=== PATIENT | male | born 1950 | race Caucasian/White ===

== ENCOUNTER → 2020-09-20 | Day surgery (SDC) | payer MEDICARE ==
[~2020-09-20] MED LIST: 24HR ALLERGY REL5 MG PO; ALTOPREV40 MG PO; DITROPAN XL 5 MG5 MG PO; ESCITALOPRAM OX20 MG PO; GLUCOPHAGE500 MG PO; MONTELUKAST SOD10 MG PO; MUCUS D ER 6001 EACH PO; NEXIUM40 MG PO; NORVASC5 MG PO; RAMIPRIL10 MG PO; TYLENOL 8 HOUR650 MG PO
== END | disposition home or self-care (01) ==
LOC: OR 11:38
DX: K63.5 Polyp of colon (principal); K64.1 Second degree hemorrhoids; K58.9 Irritable bowel syndrome, unspecified; I10 Essential (primary) hypertension; E78.5 Hyperlipidemia, unspecified; E11.9 Type 2 diabetes mellitus without complications; J45.909 Unspecified asthma, uncomplicated; Z79.899 Other long term (current) drug therapy; Z90.49 Acquired absence of other specified parts of digestive tract; Z79.84 Long term (current) use of oral hypoglycemic drugs
CPT/HCPCS: 82962; J2704; J7040

== ENCOUNTER → 2020-11-13 | Outpatient (CLI) | payer MEDICARE | LOC: EMI 08:00 | DX: R26.89 Other abnormalities of gait and mobility (principal); G31.9 Degenerative disease of nervous system, unspecified; J32.8 Other chronic sinusitis | CPT/HCPCS: 70551 ==

== ENCOUNTER → 2020-12-13 | Outpatient (CLI) | payer MEDICARE | LOC: KOH-I 12-10 11:00 | DX: J01.81 Other acute recurrent sinusitis (principal); J32.0 Chronic maxillary sinusitis | CPT/HCPCS: 70486 ==

== ENCOUNTER → 2021-04-03 | Outpatient (CLI) | payer MEDICARE | LOC: LBRF 10:51 | DX: J33.9 Nasal polyp, unspecified (principal) ==

== ENCOUNTER → 2021-10-14 | Outpatient (CLI) | payer MEDICARE ==
[2021-10-14 12:38] LABS: BUN/CREATININE RATIO 11 (0-10)
== END ==
LOC: LAB 10:48
PROVIDERS: Family Medicine
DX: G91.2 (Idiopathic) normal pressure hydrocephalus (principal); E11.9 Type 2 diabetes mellitus without complications; E55.9 Vitamin D deficiency, unspecified; E78.2 Mixed hyperlipidemia
CPT/HCPCS: 36415; 80053; 80061; 83036; 84443

== ENCOUNTER → 2021-10-22 | Outpatient (CLI) | payer MEDICARE ==
[~2021-10-22] MED LIST changes: -ALTOPREV40 MG PO; +APRISO0.375 GM PO; +DOXYCYCLINE HY100 MG PO; +FINASTERIDE5 MG PO; +FLOMAX 0.4 MG0.4 MG PO; +HYDROXYZINE HCL10 MG PO; +IPRAT-ALBUT 0.5-3 ML INH; +LOVASTATIN40 MG PO; +MYRBETRIQ50 MG PO; +WELLBUTRIN XL150 MG PO
== END ==
LOC: EMI 10-21 11:00
DX: G91.2 (Idiopathic) normal pressure hydrocephalus (principal); G31.9 Degenerative disease of nervous system, unspecified
CPT/HCPCS: 70553; A9577

== ENCOUNTER 2021-10-26 14:37 | Inpatient (IN) | payer MEDICARE, MEDICAID ==
[~2021-10-26] VITALS: Ht 172.7 cm; Wt 64.9 kg
[~2021-10-26 14:37] MED LIST changes: -APRISO0.375 GM PO; -DOXYCYCLINE HY100 MG PO; -FINASTERIDE5 MG PO; -FLOMAX 0.4 MG0.4 MG PO; -HYDROXYZINE HCL10 MG PO; -IPRAT-ALBUT 0.5-3 ML INH; -MYRBETRIQ50 MG PO; -WELLBUTRIN XL150 MG PO
[2021-10-26 15:27] LABS: RED BLOOD COUNT 4.52 M/UL (4.20-5.50); WHITE BLOOD COUNT 27.5 K/UL (4.5-11.0)
[2021-10-26 15:48] LABS: BUN/CREATININE RATIO 25 (0-10)
[2021-10-26] MEDS ORDERED: FINASTERIDE5 MG PO (18:30)
[2021-10-26] MEDS ORDERED: HYDROXYZINE HCL10 MG PO (18:31)
[2021-10-26] MEDS ORDERED: MYRBETRIQ50 MG PO (18:31)
[2021-10-26] MEDS ORDERED: APRISO0.375 GM PO (18:31)
[2021-10-26] MEDS ORDERED: DOXYCYCLINE HY100 MG PO (18:32)
[2021-10-26] MEDS ORDERED: IPRAT-ALBUT 0.5-3 ML INH (18:32)
[2021-10-26] MEDS ORDERED: WELLBUTRIN XL150 MG PO (18:33)
[2021-10-26] MEDS ORDERED: FLOMAX 0.4 MG0.4 MG PO (18:33)
[2021-10-27 06:28] LABS: HEMOGLOBIN 12.6 gm/dl (14.0-17.5); RED BLOOD COUNT 4.74 M/UL (4.20-5.50); WHITE BLOOD COUNT 24.6 K/UL (4.5-11.0)
[2021-10-27 07:00] LABS: BUN/CREATININE RATIO 19 (0-10)
[2021-10-28 06:45] LABS: HEMOGLOBIN 12.7 gm/dl (14.0-17.5); RED BLOOD COUNT 4.73 M/UL (4.20-5.50); WHITE BLOOD COUNT 24.9 K/UL (4.5-11.0)
[2021-10-28 07:01] LABS: BUN/CREATININE RATIO 20 (0-10)
[2021-10-29 07:58] LABS: HEMOGLOBIN 10.9 gm/dl (14.0-17.5); WHITE BLOOD COUNT 21.8 K/UL (4.5-11.0)
[2021-10-29 08:03] LABS: RED BLOOD COUNT 4.07 M/UL (4.20-5.50)
[2021-10-29 08:39] LABS: BUN/CREATININE RATIO 14 (0-10)
[2021-10-29] MEDS ORDERED: LEVOFLOXACIN500 MG PO (12:16)
[2021-10-30 03:58] LABS: HEMOGLOBIN 11.6 gm/dl (14.0-17.5); RED BLOOD COUNT 4.3 M/UL (4.20-5.50); WHITE BLOOD COUNT 24.3 K/UL (4.5-11.0)
[2021-10-30 04:20] LABS: BUN/CREATININE RATIO 12 (0-10)
[2021-10-31 04:18] LABS: HEMOGLOBIN 11.1 gm/dl (14.0-17.5); RED BLOOD COUNT 4.15 M/UL (4.20-5.50); WHITE BLOOD COUNT 24.4 K/UL (4.5-11.0)
[2021-10-31 04:39] LABS: BUN/CREATININE RATIO 13 (0-10)
[2021-10-31] MEDS ORDERED: AUGMENTIN 500-500 MG PO (09:39)
[2021-10-31] MEDS ORDERED: AMOX TR-K CLV1 EAC4 PO (09:44)
[2021-10-31] MEDS ORDERED: LEVOFLOXACIN500 MG PO (09:44)
== END 2021-10-31 16:22 | DRG 166 ==
LOC: ER1 14:37 → CDU 18:44 → M/S 18:44
PROVIDERS: Internal Medicine; Registered Nurse; Student in an Organized Health Care Education/Training Program; ADMIT Internal Medicine
PROC: 3E03329 Introduction of Other Anti-infective into Peripheral Vein, Percutaneous Approach (ICD-10-PCS; principal; 2021-10-26)
PROC: 0BBJ8ZX Excision of Left Lower Lung Lobe, Via Natural or Artificial Opening Endoscopic, Diagnostic (ICD-10-PCS; 2021-10-28)
PROC: 07B73ZX Excision of Thorax Lymphatic, Percutaneous Approach, Diagnostic (ICD-10-PCS; 2021-10-28)
PROC: 0B9J8ZX Drainage of Left Lower Lung Lobe, Via Natural or Artificial Opening Endoscopic, Diagnostic (ICD-10-PCS; 2021-10-28)
PROC: 0BDJ8ZX Extraction of Left Lower Lung Lobe, Via Natural or Artificial Opening Endoscopic, Diagnostic (ICD-10-PCS; 2021-10-28)
DX: J18.8 Other pneumonia, unspecified organism (principal); A41.9 Sepsis, unspecified organism; K51.90 Ulcerative colitis, unspecified, without complications; C34.32 Malignant neoplasm of lower lobe, left bronchus or lung; J98.11 Atelectasis; J44.0 Chronic obstructive pulmonary disease with (acute) lower respiratory infection; Z20.822 Contact with and (suspected) exposure to COVID-19; M54.9 Dorsalgia, unspecified; I10 Essential (primary) hypertension; J84.112 Idiopathic pulmonary fibrosis; R63.4 Abnormal weight loss; R59.1 Generalized enlarged lymph nodes; F32.A Depression, unspecified; D53.9 Nutritional anemia, unspecified; F03.90 Unspecified dementia, unspecified severity, without behavioral disturbance, psychotic disturbance, mood disturbance, and anxiety; E11.9 Type 2 diabetes mellitus without complications; E87.6 Hypokalemia; Z82.49 Family history of ischemic heart disease and other diseases of the circulatory system; Z79.899 Other long term (current) drug therapy; Z79.84 Long term (current) use of oral hypoglycemic drugs
CPT/HCPCS: 36415; 71045; 71275; 74018; 80048; 80202; 82550; 82553; 82607; 82728; 82747; 82962; 83540; 83550; 83605; 83735; 83880; 83921; 84132; 84484; 85025; 85027; 85652; 86140; 87015; 87040; 87070; 87116; 87205; 88172; 93005; 94640; 94664; 94760; 96374; 97110-GP-CQ; 97162; 97166; 97530-GP-CQ; 99285; J1650; J2185; J2370; J2704; J3010; J3370; J3475; J7040; J7070; Q9967; U0002